=== PATIENT | female | born 1940 | race Caucasian/White ===

== ENCOUNTER 2016-08-29 18:45 | Emergency (ER) | payer MEDICARE, OTHER ==
[2016-08-29] MEDS ORDERED: CHLORHEXIDINE GLUCONATE 4 % 15 ML UD TOP ONE (19:08)
[2016-08-29 19:16] VITALS: TEMP 98.4
--- NOTE | 2016-08-29 19:17 | ED.PDOC ---
History of Present Illness - General Chief Complaint: Laceration Stated Complaint: laceration Time Seen by Provider: 08/29/16 19:02 Source: patient, RN notes reviewed, Vital Signs reviewed Exam Limitations: no limitations - History of Present Illness Initial Comments: Patient is a 75 y/o female who was doing dishes just [employer] and cut her left third finger on a coffee cup that had broken. She sustained a laceration to her left third finger, dorsal side. She came in to assure that it sis not need any stitches. She states her pain is a 1/10, sharp. She is experiencing no numbness or tingling. Timing/Duration: just prior to arrival Severity: mild Location: hands - left 3rd finger Improving Factors: nothing Worsening Factors: nothing Associated Symptoms: denies symptoms Allergies/Adverse Reactions: Allergies Aspirin Allergy (Verified 04/02/16 10:22) Vomitting Metoclopramide [From Reglan] Allergy (Unverified 04/02/16 10:22) Unknown Morphine Allergy (Unverified 04/02/16 10:22) Other made her sick and she couldnt get up Penicillins Allergy (Unverified 04/02/16 10:22) Rash Ondansetron [From Zofran] Adverse Reaction (Mild, Unverified 04/02/16 10:22) Other Hallucinations Home Medications: Ambulatory Orders NK [NK] 04/02/16 Review of Systems - Review of Systems Constitutional: States: no symptoms reported. Denies: chills, fever EENTM: States: nose congestion. Denies: ear pain, throat pain Respiratory: States: no symptoms reported Cardiology: States: no symptoms reported Gastrointestinal/Abdominal: States: no symptoms reported Genitourinary: States: no symptoms reported Musculoskeletal: States: back pain, joint pain, joint swelling, muscle pain Skin: States: other - laceration Neurological: States: no symptoms reported Endocrine: States: no symptoms reported Hematologic/Lymphatic: States: no symptoms reported All other Systems: Reviewed and Negative Past Medical History (General) - Patient Medical History Hx Seizures: No Hx Stroke: No Hx Asthma: No Hx of COPD: No Hx Cardiac Disorders: No Hx Congestive Heart Failure: No Hx Pacemaker: No 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 Hx Diabetes: No Hx Cancer: Yes - breast CA - 2005 R mastectomy Hx MRSA: No Surgical History: Hysterectomy, other - Vaccination History Hx Tetanus, Diphtheria Vaccination: - 9 or 10 years ago Hx Influenza Vaccination: Yes - 2016 Hx Pneumococcal Vaccination: Yes - Social History Hx Tobacco Use: No Hx Alcohol Use: No Hx Substance Use: No Hx Physical Abuse: No Hx Emotional Abuse: No Family Medical History - Family History Mother Living Status: Hx Family Cancer: Yes - breast CA, colon CA Physical Exam - Physical Exam General Appearance: Alert, Comfortable, No apparent distress Eyes, Ears, Nose, Throat Exam: normal ENT inspection Neck: supple Extremity: swelling - to DIP joint of right 3rd finger due to arthritis, other - Decreased ROM of left 3rd DIP joint due to arthritis. No tendon or bony involvement. Neurologic: alert, normal mood/affect, oriented x 3 Skin Exam: warm/dry Skin Problem Location: other - Dorsal left 3rd finger between nail and DIP joint. Skin Character: lesion - 1.2 cm laceration through dermis, horizontal Lymphatic: no adenopathy Progress - Progress Progress: 08/29/16 19:56 Laceration was cleaned. Because it was not deep and it was not a dirty laceration, it was closed with dermabond. Patient has many allergies. She does not know when her last tetanus was, and she does not want to get a tetanus due to the high risk of allergy to the injection. I explained the risks of not getting the immunization and Patient prefers to not receive it. Therefore, we will forego the tetanus immunization. 08/29/16 20:00 Procedures - Laceration/Wound Repair Right Finger Wound Length (cm): 1.2 Wound's Depth, Shape: superficial, linear Wound Explored: clean Irrigated w/ Saline (cc's): 60 Betadine Prep?: - Cleansed with Hebiclens Wound Repaired With: dermabond Departure - Departure Clinical Impression: Laceration of third finger of left hand Qualifiers: Encounter type: initial encounter Qualifier Code: (S61.213A) Laceration without foreign body of left middle finger without damage to nail, initial encounter Disposition: Discharge to Home or Self Care Condition: Fair Departure Forms: ED Discharge - Pt. Copy, Patient Portal Self Enrollment Instructions: DI for Laceration Repair With Dermabond Diet: resume usual diet Home Medications: Ambulatory Orders NK [NK] 04/02/16 Additional Instructions: Follow up for any signs or symptoms of infection.
[2016-08-29 20:13] VITALS: BP 170/93
[2016-08-29 20:14] VITALS: O2SAT 93
== END 2016-08-29 20:14 | disposition home or self-care (01) ==
LOC: ER 18:45
DX: S61.213A Laceration without foreign body of left middle finger without damage to nail, initial encounter (principal); I10 Essential (primary) hypertension; Z90.11 Acquired absence of right breast and nipple; Z85.3 Personal history of malignant neoplasm of breast; Z88.6 Allergy status to analgesic agent; Z88.0 Allergy status to penicillin; Z88.8 Allergy status to other drugs, medicaments and biological substances; W25.XXXA Contact with sharp glass, initial encounter

== ENCOUNTER 2017-08-13 14:37 | Emergency (ER) | payer MEDICARE, OTHER ==
--- NOTE | 2017-08-13 14:51 | ED.PDOC ---
History of Present Illness - General Chief Complaint: Head Injury Time Seen by Provider: 08/13/17 14:47 Source: patient Exam Limitations: no limitations Additional Information: GROUND LEVEL FALL, TRIPPED. HIT BACK OF HEAD, NO LOC, C/O LACERATION, NO ANTICOAGULATION - History of Present Illness Severity: moderate Improving Factors: nothing Worsening Factors: nothing Associated Symptoms: denies symptoms Allergies/Adverse Reactions: Allergies Aspirin Allergy (Verified 04/02/16 10:22) Vomitting Metoclopramide [From Reglan] Allergy (Unverified 04/02/16 10:22) Unknown Morphine Allergy (Unverified 04/02/16 10:22) Other made her sick and she couldnt get up Penicillins Allergy (Unverified 04/02/16 10:22) Rash Sulfa Antibiotics Allergy (Verified 08/13/17 14:57) Ondansetron [From Zofran] Adverse Reaction (Mild, Verified 08/13/17 15:13) Other Hallucinations Home Medications: Ambulatory Orders NK [NK] 04/02/16 Review of Systems - Review of Systems Constitutional: States: other - NO LOC. Denies: weakness EENTM: States: no symptoms reported Respiratory: Denies: short of breath Cardiology: Denies: chest pain, palpitations, syncope Gastrointestinal/Abdominal: Denies: diarrhea, vomiting Musculoskeletal: States: no symptoms reported Skin: States: other - LACERATION Neurological: States: headache. 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 Hx Diabetes: No Hx Cancer: Yes - breast CA - 2005 R mastectomy Hx MRSA: No - Vaccination History Hx Tetanus, Diphtheria Vaccination: - 9 or 10 years ago Hx Influenza Vaccination: Yes - 2016 Hx Pneumococcal Vaccination: Yes - Social History Hx Tobacco Use: No Hx Alcohol Use: No Hx Substance Use: No Hx Physical Abuse: No Hx Emotional Abuse: No Family Medical History - Family History Mother Living Status: Hx Family Cancer: Yes - breast CA, colon CA Physical Exam - Physical Exam General Appearance: Alert, No apparent distress Eye Exam: bilateral normal Ears, Nose, Throat: hearing grossly normal, other - LACERATION R POST OCCIPUT. NO STEP OFF Neck: non-tender, full range of motion, supple, normal inspection Respiratory: lungs clear, normal breath sounds, no respiratory distress Cardiovascular/Chest: regular rate, rhythm, no murmur Gastrointestinal/Abdominal: non tender, soft, no organomegaly Back Exam: no vertebral tenderness - C/T/L Extremity: normal range of motion, non-tender, other - PELVIS STABLE. Neurologic: no motor/sensory deficits, alert, normal mood/affect, oriented x 3 Skin Exam: warm/dry, other - LACERATION PREVIOUSLY NOTED Lymphatic: no adenopathy Progress - Progress Progress: 08/13/17 16:55 RADIOLOGY CALLED, SMALL NON DEPRESSED SKULL FX. NO HEMORRHAGE. WILL TRANSFER TO [facility] [address], ACCEPTS PT IN TRANSFER - EKG/XRAY/CT CT: D/W RADIOLOGY, NON DEPRESSED OCCIPITAL SKULL FX. NO ASSOCIATED HEMORRHAGE. Procedures - Laceration/Wound Repair Occipital Wound Length (cm): 2.5 Wound's Depth, Shape: superficial Wound Explored: no foreign body removed Betadine Prep?: No - HIBICLEANSE Anesthesia: Lidocaine w/ Epi Wound Repaired With: jackelin Layer Closure?: No Departure - Departure Clinical Impression: Laceration of scalp with complication Qualifiers: Encounter type: initial encounter Qualified Code(s): S01.01XA - Laceration without foreign body of scalp, initial encounter Skull fracture Qualifiers: Encounter type: initial encounter Skull bone/location: occipital bone Fracture type: closed Occipital fracture type: unspecified fracture of occiput Laterality : right Qualified Code(s): S02.119A - Unspecified fracture of occiput, initial encounter for closed fracture Time of Disposition: 16:13 Disposition: Transfer to Hospital Condition: Good Departure Forms: ED Discharge - Pt. Copy, Patient Portal Self Enrollment Instructions: DI for Concussion, DI for Closed Head Injury Referrals: Jack Gann MD [Primary Care Provider] - 1-2 Weeks Home Medications: Ambulatory Orders NK [NK] 04/02/16
[2017-08-13 14:57] VITALS: TEMP 97.9
[2017-08-13] MEDS ORDERED: LIDOCAINE 1% W/ EPINEPHRINE 20 ML VIAL INJ ONE (15:19)
[2017-08-13] MEDS ORDERED: CHLORHEXIDINE GLUCONATE 4 % 15 ML UD TOP ONE (15:19)
--- NOTE | 2017-08-13 15:36 | CT ---
PROCEDURE: Head HISTORY: FALL WITH HEAD LAC Indication: Same as above Comparison: 04/26/2012 Technique: CT of the head was done without intravenous contrast was done in the orthogonal planes. This exam was performed according to our departmental dose-optimization program, which includes automated exposure control, adjustment of the mA and/or KV according to the patient's size and/or use of iterative reconstruction technique. FINDINGS: There is no intracranial hemorrhage, midline shift mass effect or acute focal infarct. There is prominence of the sylvian fissures and the cortical sulci reflecting age related volume loss. There is periventricular and deep white matter low attenuation, most likely related to small vessel white matter ischemic disease. Intracranial vascular calcifications are seen. If clinical concern exists regarding an acute ischemic/vascular pathology being responsible for patient's symptomatology, an MRI of the brain is more sensitive than the current study, in ruling out such a possibility. There is good valdez/white matter differentiation. The ventricular system is normal. The mastoid air cells are unremarkable . The paranasal sinuses are unremarkable . There is no visualization of acute fractures involving the calvarium or the skull base. IMPRESSION: There is no acute intracranial abnormality. Age related and chronic involutional changes are seen. Electronically signed by: Hu Pacheco MD 08/13/2017 3:34 PM CDT Workstation: [id number]
--- NOTE | 2017-08-13 15:47 | CT ---
PROCEDURE: Cervical Spine HISTORY: FALL WITH HEAD LAC Indication: Same as above Comparison: None Technique: CT of the cervical spine was done without intravenous contrast, including axial, sagittal and coronal reconstructions. This exam was performed according to our departmental dose-optimization program, which includes automated exposure control, adjustment of the mA and/or KV according to the patient's size and/or use of iterative reconstruction technique. FINDINGS: There is no CT evidence of acute cervical spinal fractures or dislocations. There is presence of a nondisplaced fracture in the right basioccipital region There is also evidence of mild to moderate amount of degenerative change, including osteophyte formation, reduction in the intervertebral disc spaces, endplate degenerative changes and facet arthropathy seen at few levels. There is 2 mm anterolisthesis of C3 at C4 most likely due to underlying degenerative change in the cervical spine There is limited evaluation for acute or chronic intervertebral disc herniations or protrusions given the limitation of lack of intrathecal contrast. The prevertebral and the paravertebral soft tissues appear unremarkable. There is no gross evidence of epidural hematoma or paraspinal soft tissue fluid collections. The remainder of the visualized surrounding subcutaneous soft tissues and muscle structures are grossly unremarkable. The visualized airway appears unremarkable. The hyoid, cricoid and laryngeal cartilages are intact. The visualized segments of the bilateral parotid glands and the bilateral submandibular glands are unremarkable. There is no visualization of pathological lymphadenopathy in the region of the imaged neck. The bone mineralization is normal. The visualized lung apices are unremarkable . The sagittal reconstructed images demonstrate normal alignment The coronal reconstructed images demonstrate normal alignment. The findings were discussed with Dr. Lyon at 3:44 PM IMPRESSION: Negative for acute cervical spine bony trauma. There is presence of a nondisplaced fracture in the right basioccipital region of the skull base, better seen on the current study than the CT of the head Electronically signed by: Hu Pacheco MD 08/13/2017 3:44 PM CDT Workstation: [id number]
[2017-08-13 16:55] VITALS: BP 177/98; O2SAT 99
== END 2017-08-13 16:45 | disposition short-term general hospital (02) ==
LOC: ER 14:37
DX: S02.119A Unspecified fracture of occiput, initial encounter for closed fracture (principal); S01.01XA Laceration without foreign body of scalp, initial encounter; I10 Essential (primary) hypertension; Z85.3 Personal history of malignant neoplasm of breast; Z90.11 Acquired absence of right breast and nipple; W01.0XXA Fall on same level from slipping, tripping and stumbling without subsequent striking against object, initial encounter; Y92.9 Unspecified place or not applicable

== ENCOUNTER → 2017-11-08 | Outpatient (CLI) | payer MEDICARE, OTHER | LOC: GMAH 11:00 | PROVIDERS: ATTEND Family Medicine | DX: E55.9 Vitamin D deficiency, unspecified (principal) ==

== ENCOUNTER 2020-06-02 12:36 | Emergency (ER) | payer MEDICARE, OTHER ==
[2020-06-02 13:58] VITALS: TEMP 97.9
[2020-06-02] MEDS ORDERED: methylPREDNISolone ACETATE 80 MG/ML VIAL INJ ONE (14:22)
--- NOTE | 2020-06-02 14:27 | ED.PDOC ---
History of Present Illness - General Chief Complaint: General Stated Complaint: right knee/calf pain,swelling Time Seen by Provider: 06/02/20 14:22 Source: patient Exam Limitations: no limitations - History of Present Illness Initial Comments: PATIENT W/ 1 WEEK HISTORY OF INCREASED RIGHT KNEE PAIN, SWELLING OF LOWER LEG, AND NOW CALF PAIN. PT DENIES ANY RECENT INJURY TO HER RIGHT KNEE, BUT DOES HAVE A LONG STANDING HISTORY OF ARTHRITIS IN THIS KNEE. Method of Injury: unknown Improving Factors: nothing Worsening Factors: nothing Allergies/Adverse Reactions: Allergies Aspirin Allergy (Verified 04/02/16 10:22) Vomitting Metoclopramide [From Reglan] Allergy (Unverified 04/02/16 10:22) Unknown Morphine Allergy (Unverified 04/02/16 10:22) Other made her sick and she couldnt get up Penicillins Allergy (Unverified 04/02/16 10:22) Rash Sulfa Antibiotics Allergy (Verified 08/13/17 14:57) Ondansetron [From Zofran] Adverse Reaction (Mild, Verified 08/13/17 15:13) Other Hallucinations Home Medications: Ambulatory Orders Meloxicam [Mobic] 15 mg PO DAILY #30 tab 06/02/20 Review of Systems - Review of Systems Constitutional: States: no symptoms reported EENTM: States: no symptoms reported Respiratory: States: no symptoms reported Cardiology: States: no symptoms reported Gastrointestinal/Abdominal: States: no symptoms reported Genitourinary: States: no symptoms reported Musculoskeletal: States: no symptoms reported Skin: States: no symptoms reported Neurological: States: no symptoms reported, emotional problems Past Medical History (General) - Patient Medical History Hx Seizures: No Hx Stroke: No Hx Asthma: No Hx of COPD: No Hx Cardiac Disorders: No Hx Congestive Heart Failure: No Hx Pacemaker: No 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 Hx Diabetes: No Hx Cancer: Yes - breast CA - 2005 R mastectomy Hx MRSA: No - Vaccination History Hx Tetanus, Diphtheria Vaccination: - 9 or 10 years ago Hx Influenza Vaccination: Yes Hx Pneumococcal Vaccination: Yes - Social History Hx Tobacco Use: Yes Hx Alcohol Use: No Hx Substance Use: No Hx Physical Abuse: No Hx Emotional Abuse: No Family Medical History - Family History Mother Living Status: Hx Family Cancer: Yes - breast CA, colon CA Physical Exam - Physical Exam General Appearance: Alert, Well Developed, Well Groomed, Well Hydrated, Other Leg: swelling - OF RIGHT KNEE, 4+ EFFUSION NOTED, PAIN AND SWELLING IN POPLITEAL FOSSA, CALF TERDNERNESS NOTED, SOME BRUISING OF COX AREA 1+ EDENA TO LOWER RIGHT LEG, NO CORDS. Knee: joint effusion, limited ROM, soft tissue tenderness Ankle: normal inspection Foot: normal inspection Departure - Departure Clinical Impression: Degenerative joint disease of right knee Qualifiers: Osteoarthritis type: primary Qualified Code(s): M17.11 - Unilateral primary osteoarthritis, right knee Time of Disposition: 17:41 Disposition: Discharge to Home or Self Care Departure Forms: ED Discharge - Pt. Copy, Patient Portal Self Enrollment Instructions: Osteoarthritis (DC) Referrals: Danny Giraldo MD [Primary Care Provider] - 1-2 Weeks Prescriptions: Meloxicam [Mobic] 15 mg PO DAILY #30 tab Home Medications: Ambulatory Orders Meloxicam [Mobic] 15 mg PO DAILY #30 tab 06/02/20
--- NOTE | 2020-06-02 15:25 | RAD ---
EXAM DESCRIPTION: Knee,Right Complete CLINICAL HISTORY: 79 years Female, KNEE PAIN COMPARISON: None. FINDINGS: Three views of the right knee show no acute fracture or malalignment. Small joint effusion. Mild to moderate patellofemoral joint space narrowing. Vascular calcifications. IMPRESSION: Mild to moderate degenerative changes in the patellofemoral compartment with a small joint effusion. Peripheral vascular disease. Electronically signed by: Ryan Stinson MD 06/02/2020 3:23 PM [facility]
--- NOTE | 2020-06-02 17:05 | US ---
EXAM DESCRIPTION: Venous Doppler sonogram , Lower Extremity RT CLINICAL HISTORY: EDEMA, CALF TENDERNESS. COMPARISON: None Available. TECHNIQUE: Right lower extremity venous duplex with color and duplex Doppler evaluation FINDINGS: Doppler evaluation of the right lower extremity deep veins was performed. Normal color flow is seen in the common femoral, superficial femoral, profunda femoral and greater saphenous veins. Normal flow is seen in the popliteal vein and veins below the knee in the calf. Normal venous compressibility and flow augmentation. Hypoechoic area in the proximal right calf is noted. Differential considerations would include dissecting Cross's cyst or hematoma. This measures 4.9 x 1.5 x 1.6 cm. Clinical correlation recommended. IMPRESSION: Negative for evidence of deep venous thrombosis on right lower extremity venous Doppler sonogram. Right posterior calf hematoma or dissecting Cross's cyst. Electronically signed by: Cain Brunson MD 06/02/2020 5:03 PM [employer]
[2020-06-02] MEDS ORDERED: LIDOCAINE 1% 10 ML VIAL INJ ONE (17:15)
[2020-06-02 18:38] VITALS: BP 151/90; O2SAT 96
== END 2020-06-02 17:55 | disposition home or self-care (01) ==
LOC: ER 12:36
DX: M17.11 Unilateral primary osteoarthritis, right knee (principal); Z85.3 Personal history of malignant neoplasm of breast; Z87.891 Personal history of nicotine dependence; Z86.61 Personal history of infections of the central nervous system; Z88.6 Allergy status to analgesic agent; Z88.8 Allergy status to other drugs, medicaments and biological substances; Z88.5 Allergy status to narcotic agent; Z88.0 Allergy status to penicillin; Z88.2 Allergy status to sulfonamides
CPT/HCPCS: 73562; 93971; J1030

== ENCOUNTER → 2020-06-05 | Outpatient (CLI) | payer MEDICARE, OTHER ==
--- NOTE | 2020-06-08 06:00 | MRI ---
Study: MRI of the Right Knee. Indication: HEMATOMA Technique: Multiplanar, multi sequence MRI of the right knee was obtained without intravenous contrast. Comparison: Radiographs August 31, 2020 Findings: ACL, PCL, MCL, and lateral collateral ligament complex intact. Prominent obliquely oriented signal posterior horn medial meniscus with suspected subtle undersurface extension concerning for undersurface tear. Free edge fraying body and posterior horn lateral meniscus. Areas of grade 2 and mild grade 3 chondral thinning medial and lateral knee compartments. Patellofemoral extensor mechanism intact. Patella located. Extensive grade 4 chondrosis and cortical remodeling throughout the central and medial aspects of the patellofemoral compartment. TT-TG distance measures 13 mm. Moderate size knee effusion with scattered synovitis. No acute fracture. Partial visualization of a moderate size complex Cross's cyst with partial rupture and fluid tracking distally along the medial gastrocnemius myotendinous junction. Impression: Prominent degenerative signal posterior horn medial meniscus with findings concerning for an oblique undersurface tear. Free edge fraying posterior horn and body lateral meniscus. Grade 2 and 3 chondral thinning medial and lateral knee compartments. Extensive grade 4 chondrosis central and medial aspects of the patellofemoral compartment. Moderate size knee effusion with scattered synovitis. Partial visualization of a moderate size Cross's cyst which appears partially ruptured with fluid tracking along the medial gastrocnemius myotendinous junction. Electronically signed by: Bradly Morocho MD 06/08/2020 5:59 AM [employer]
== END ==
LOC: MRI 10:59
PROVIDERS: ATTEND Family Medicine
DX: M79.81 Nontraumatic hematoma of soft tissue (principal); M23.321 Other meniscus derangements, posterior horn of medial meniscus, right knee; M23.351 Other meniscus derangements, posterior horn of lateral meniscus, right knee; M22.2X1 Patellofemoral disorders, right knee; M94.261 Chondromalacia, right knee; M66.0 Rupture of popliteal cyst; M25.461 Effusion, right knee

== ENCOUNTER 2020-07-15 11:58 | Emergency (ER) | payer MEDICARE, OTHER ==
[2020-07-15] MEDS ORDERED: LIDOCAINE 1% 10 ML VIAL INJ ONE (12:22)
[2020-07-15] MEDS ORDERED: traMADol HCL 50 MG TAB PO ONE (12:31)
--- NOTE | 2020-07-15 12:31 | ED.PDOC ---
History of Present Illness - General Chief Complaint: Lower Extremity Injury Stated Complaint: right knee pain Time Seen by Provider: 07/15/20 12:00 - History of Present Illness Initial Comments: 79 yo F with chronic right knee pain comes in with worsening pain and swelling. was evaluated one month ago and US and xray at that time. States she called Dr Hernández, but was not able to reach him so came in for evaluation. no chest pain. no shortness of breath. denies headache. pain worse with movement. denies fever. Allergies/Adverse Reactions: Allergies Aspirin Allergy (Verified 04/02/16 10:22) Vomitting Metoclopramide [From Reglan] Allergy (Unverified 04/02/16 10:22) Unknown Morphine Allergy (Unverified 04/02/16 10:22) Other made her sick and she couldnt get up Penicillins Allergy (Unverified 04/02/16 10:22) Rash Sulfa Antibiotics Allergy (Verified 08/13/17 14:57) Ondansetron [From Zofran] Adverse Reaction (Mild, Verified 08/13/17 15:13) Other Hallucinations Home Medications: Ambulatory Orders Tramadol HCl 50 mg PO BID PRN 5 Days #10 tab 07/15/20 Review of Systems - Review of Systems Constitutional: Denies: chills, fever EENTM: Denies: blurred vision Respiratory: Denies: cough, short of breath Cardiology: Denies: chest pain, palpitations Gastrointestinal/Abdominal: Denies: abdominal pain, nausea, vomiting Genitourinary: Denies: hematuria Musculoskeletal: States: joint pain. 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 Hx Diabetes: No Hx Cancer: Yes - breast CA - 2005 R mastectomy Hx MRSA: No - Vaccination History Hx Tetanus, Diphtheria Vaccination: - 9 or 10 years ago Hx Influenza Vaccination: Yes Hx Pneumococcal Vaccination: Yes - Social History Hx Tobacco Use: Yes Hx Alcohol Use: No Hx Substance Use: No Hx Physical Abuse: No Hx Emotional Abuse: No Family Medical History - Family History Mother Living Status: Hx Family Cancer: Yes - breast CA, colon CA Physical Exam - Physical Exam General Appearance: Alert, Comfortable, No apparent distress, Well Developed, Well Groomed, Well Hydrated, Well Nourished Neck: non-tender, full range of motion, supple, normal inspection Cardiovascular/Respiratory: regular rate, rhythm, no M/R/G, normal peripheral pulses, normal breath sounds, no respiratory distress Gastrointestinal/Abdominal: non-tender Back: normal inspection, no CVA tenderness, no vertebral tenderness Knee: no evidence of injury, normal ROM, soft tissue tenderness, swelling, other - no erythema. Neuro/Tendon: normal sensation, normal motor functions, normal tendon functions, responds to pain, no evidence tendon injury, motor deficit Mental Status: alert, oriented x 3 Skin: normal color, warm/dry Progress - Progress Progress: 07/15/20 12:49 attempted arthorcentesis of right knee joint. Bedside us should significant soft tissue fluid. Site marked and prepared in sterile fashion. Wheel of lidocaine placed. Lidocaine then introduced into the joint space. no Fluid was removed from the joint space. asymptomatic elevated bp, suspect secondary to pain. Will check BMP. patient given shot of dexamethasone and tramadol for pain. pain improved The data reviewed when caring for this patient included: nurse notes, prior records, etc. The history and assessments from nurses notes were reviewed and considered, and the patient's home medication list was also reviewed and considered. My assessment and the results of testing completed here in the ED were discussed with the patient. All questions were answered, and she express understanding of my assessment and the plan. she have been instructed to return if their symptoms worsen, and have been asked to follow up with their primary care physician to recheck today's presenting complaint. I have reviewed medication, benefits, alternatives and side effects. Patient decided to proceed with medication. Racheal Franco DO #[id number] 07/15/20 13:21 07/15/20 13:22 - Results/Orders Results/Orders: 07/15/20 12:18 CRYSTALS,SYNOVIAL FLUID Stat SYNOVIAL FLUID WBC Stat 07/15/20 12:20 BODY FLUID CULTURE Stat GRAM STAIN Stat Laboratory Results Sodium 135 mmol/L (135-145) 07/15/20 12:40 Potassium 4.1 mmol/L (3.6-5.0) 07/15/20 12:40 Chloride 100 mmol/L (101-111) L 07/15/20 12:40 Carbon Dioxide 27 mmol/L (21-31) 07/15/20 12:40 Anion Gap 12.1 (12-18) 07/15/20 12:40 BUN 20 mg/dL (7-18) H 07/15/20 12:40 Creatinine 0.68 mg/dL (0.6-1.3) 07/15/20 12:40 BUN/Creatinine Ratio 29.4 (10-20) H 07/15/20 12:40 Random Glucose 98 mg/dL (70-105) 07/15/20 12:40 Serum Osmolality 272.7 mOsm/L (275-295) L 07/15/20 12:40 Calcium 8.6 mg/dL (8.4-10.2) 07/15/20 12:40 Departure - Departure Clinical Impression: Elevated blood pressure reading Knee pain Qualifiers: Chronicity: chronic Laterality: right Qualified Code(s): M25.561 - Pain in rig ht knee Time of Disposition: 13:02 Disposition: Discharge to Home or Self Care Condition: Fair Departure Forms: ED Discharge - Pt. Copy, Patient Portal Self Enrollment Instructions: DI for Leg Pain, Osteoarthritis (DC), DASH Diet Diet: resume usual diet Activity: increase activity as tolerated Referrals: Danny Giraldo MD [Primary Care Provider] - 1-2 Weeks Paul Hernández MD [Active Staff] - 1-2 Weeks Prescriptions: Tramadol HCl 50 mg PO BID PRN 5 Days #10 tab PRN Reason: Pain Home Medications: Ambulatory Orders Tramadol HCl 50 mg PO BID PRN 5 Days #10 tab 07/15/20
[2020-07-15] MEDS ORDERED: DEXAMETHASONE INJ 10 MG/ML VIAL IM ONE (12:32)
[2020-07-15] MEDS: HYDROcodone 5MG/APAP 325MG 1 EA TAB PO ONE ×2 (13:58→14:01)
[2020-07-15] MEDS: ONDANSETRON ODT 8 MG TAB SL ONE ×2 (13:59→14:01)
[2020-07-15 14:43] VITALS: BP 171/94; TEMP 98; O2SAT 93
== END 2020-07-15 14:35 | disposition home or self-care (01) ==
LOC: ER 11:58
DX: M25.561 Pain in right knee (principal); R03.0 Elevated blood-pressure reading, without diagnosis of hypertension; M25.461 Effusion, right knee; Z85.3 Personal history of malignant neoplasm of breast; Z86.61 Personal history of infections of the central nervous system; Z87.891 Personal history of nicotine dependence; Z88.6 Allergy status to analgesic agent; Z88.5 Allergy status to narcotic agent; Z88.0 Allergy status to penicillin; Z88.2 Allergy status to sulfonamides; Z88.8 Allergy status to other drugs, medicaments and biological substances
CPT/HCPCS: 36415; 80048; J1100